=== PATIENT | female | born 1985 | race Caucasian/White ===

== ENCOUNTER 2017-06-01 06:17 | Emergency (ER) | payer MEDICAID ==
[~2017-06-01] VITALS: Ht 152.4 cm; Wt 58.4 kg
[2017-06-01 06:19] VITALS: BP 90/69
== END 2017-06-01 08:22 | disposition home or self-care (01) ==
LOC: ED 06:51
DX: M79.672 Pain in left foot (principal); M79.671 Pain in right foot; B35.3 Tinea pedis
CPT/HCPCS: 99283

== ENCOUNTER 2017-06-29 01:58 | Emergency (ER) | payer MEDICAID | END 2017-06-29 13:31 | disposition home or self-care (01) | LOC: ED 02:30 | DX: R21 Rash and other nonspecific skin eruption (principal); F41.9 Anxiety disorder, unspecified; F19.10 Other psychoactive substance abuse, uncomplicated | CPT/HCPCS: 99281 ==

== ENCOUNTER 2017-08-31 20:41 | Emergency (ER) | payer SELFPAY ==
[~2017-08-31] VITALS: Ht 152.4 cm; Wt 59.2 kg
[2017-08-31 20:42] VITALS: BP 110/73
== END 2017-08-31 22:14 | disposition home or self-care (01) ==
LOC: ED 22:07
DX: L03.116 Cellulitis of left lower limb (principal); L73.9 Follicular disorder, unspecified; F15.10 Other stimulant abuse, uncomplicated
CPT/HCPCS: 99283

== ENCOUNTER 2019-03-14 10:18 | Emergency (ER) | payer OTHER ==
[~2019-03-14] VITALS: Ht 152.4 cm; Wt 61.5 kg
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
[2019-03-14 11:54] LABS: BASOPHILS # (AUTO) 0.05 x10^3/uL (0-0.1); BASOPHILS % (AUTO) 0 % (0-1); EOSINOPHILS # (AUTO) 0.01 x10^3/uL (0-0.4); EOSINOPHILS % (AUTO) 0 % (1-7); LYMPHOCYTES # (AUTO) 1.43 x10^3/uL (1-3.4); LYMPHOCYTES % (AUTO) 11 % (22-44); MD NO; MEAN CORPUSCULAR HEMOGLOBIN 32.6 pg (27.0-34.8); MEAN CORPUSCULAR HGB CONC 34.6 g/dL (32.4-35.8); MEAN CORPUSCULAR VOLUME 94.2 fL (80-100); MEAN PLATELET VOLUME 8.6 fL (7.4-10.4); MONOCYTES # (AUTO) 0.27 x10^3/uL (0.2-0.8); MONOCYTES % (AUTO) 2 % (2-9); NEUTROPHILS # (AUTO) 11.39 x10^3/uL (1.8-6.8); NEUTROPHILS % (AUTO) 87 % (42-75); PLATELET COUNT 278 x10^3/uL (130-400); RED CELL DISTRIBUTION WIDTH 12.8 % (9.6-15.2)
--- NOTE | 2019-03-14 12:01 | NUR ---
US AT BEDSIDE. PT AWARE THAT WE NEED URINE SAMPLE. SKIN PWD. RESP EVEN AND UNLABORED. NAD NOTED AT THIS TIME. PT ON CONT BP AND O2 MONITORS. CALL LIGHT WITHIN REACH.
[2019-03-14 12:12] LABS: CHLORIDE 109 mmol/L (98-107)
[2019-03-14 12:25] LABS: ALANINE AMINOTRANSFERASE 14 U/L (12-78); ALBUMIN 4.1 g/dL (3.4-5.0); ALKALINE PHOSPHATASE 44 U/L (45-117); ANION GAP 8 mmol/L (5-15); BILIRUBIN,TOTAL 0.9 mg/dL (0.2-1.0); CALCIUM 9.4 mg/dL (8.5-10.1); CREATININE 0.64 mg/dL (0.55-1.02); TOTAL PROTEIN 7.4 g/dL (6.4-8.2)
--- NOTE | 2019-03-14 12:45 | NUR ---
PT AWARE WE STILL NEED URINE SAMPLE. PT REFUSES TO ATTEMPT AGAIN. RN OFFERED STRAIGHT CATH. PT REFUSED. NAD NOTED AT THIS TIME. SKIN PWD. RESP EVEN AND UNLABORED. PT ON CONT BP AND O2 MONITORS .CALL LIGHT WITHIN REACH. WILL CONT TO MONITOR PT.
--- NOTE | 2019-03-14 13:30 | NUR ---
PT UP TO RESTROOM. STEADY UPON AMBULATION. URINE SAMPLE PROVIDED AND SENT TO LAB. PT AO X 4. SKIN PWD. RESP EVEN AND UNLABORED. PT CONT TO HAVE FLIGHT OF IDEAS. RN PROVIDED RE-ORIENTATION AND ANSWERED ALL QUESTIONS. CALL LIGHT WITHIN REACH. WILL COTN TO MONITOR PT.
[2019-03-14 13:56] LABS: MICROSCOPIC INDICATED
[2019-03-14 14:09] LABS: AMPHETAMINE SCREEN, URINE Positive (Negative); BARBITURATE SCREEN, URINE Negative (Negative); BENZODIAZEPINE SCREEN, URINE Negative (Negative); CANNABINOID SCREEN, URINE Negative (Negative); COCAINE SCREEN, URINE Negative (Negative); CULTURE INDICATED? YES; METHADONE SCREEN, URINE Negative (Negative); OPIATE SCREEN, URINE Positive (Negative)
--- NOTE | 2019-03-14 14:30 | NUR ---
PT PROVIDED WITH CLEAN CLOTHES. PT AO X 4. SKIN PWD. RESP EVEN AND UNLABORED. NAD NOTED AT THIS TIME.
[2019-03-14 15:03] VITALS: BP 99/65
== END 2019-03-14 15:05 | disposition home or self-care (01) ==
LOC: ED 12:33
DX: N30.00 Acute cystitis without hematuria (principal); N18.9 Chronic kidney disease, unspecified
CPT/HCPCS: 36415; 76700; 80053; 80307; 81001; 84702; 85025; 87086; 99284

== ENCOUNTER 2020-05-05 15:09 | Emergency (ER) | payer MEDICAID ==
[~2020-05-05] VITALS: Ht 152.4 cm; Wt 56.3 kg
[2020-05-05 15:27] VITALS: BP 130/78
[2020-05-05] MEDS ORDERED: PHENAZOPYRIDINE 200 MG TABLET ONE (16:01)
--- NOTE | 2020-05-05 16:07 | NUR ---
PT MEDICATED PER ERP ORDER. URINE CUP PROVIDED, PT AWARE OF NEED FOR UA. CALL LIGHT WITHIN REACH.
--- NOTE | 2020-05-05 16:55 | NUR ---
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 Patient informed of consequenced of leaving prior to full workup: no answer or definitive treatment and may be financially responsible for full bill. Patient understood. Provider aware ua sent regardless-
[2020-05-05] MEDS ORDERED: PHENAZOPYRIDINE 200 MG TABLET PO ONE (17:00)
[2020-05-05 17:32] LABS: MICROSCOPIC INDICATED
== END 2020-05-05 16:58 | disposition left against medical advice (07) ==
LOC: ED 16:00
DX: R30.0 Dysuria (principal); R10.2 Pelvic and perineal pain; F17.210 Nicotine dependence, cigarettes, uncomplicated; R50.9 Fever, unspecified; N93.9 Abnormal uterine and vaginal bleeding, unspecified
CPT/HCPCS: 81001; 87086; 99283

== ENCOUNTER 2020-05-13 18:06 | Emergency (ER) | payer MEDICAID ==
--- NOTE | 2020-05-13 18:28 | NUR ---
KEELY RN: CALLED PT, PT STATES, " I GOT TO LEAVE NOW AND GO TO WORK" I WILL COME BACK
== END 2020-05-13 18:32 | disposition left against medical advice (07) ==
LOC: ED 18:08
DX: H92.02 Otalgia, left ear (principal); Z53.21 Procedure and treatment not carried out due to patient leaving prior to being seen by health care provider

== ENCOUNTER 2021-04-04 18:18 | Emergency (ER) | payer MEDICAID ==
[~2021-04-04] VITALS: Ht 152.4 cm; Wt 56.9 kg
[2021-04-04 18:23] VITALS: BP 98/72
--- NOTE | 2021-04-04 19:01 | NUR ---
CART PUSHER: NOT IN LOBBY WHEN CALLED FOR ROOM
--- NOTE | 2021-04-04 19:31 | NUR ---
AMUSEMENT OR RECREATION CARD CHECKER: NOT IN LOBBY WHEN CALLED FOR ROOM.
--- NOTE | 2021-04-04 19:38 | NUR ---
BOTTLE LINE WORKER: PT NOT IN LOBBY WHEN CALLED FOR ROOM. PT ASSUMED TO HAVE LEFT.
== END 2021-04-04 19:40 | disposition left against medical advice (07) ==
LOC: ED 18:35
DX: K08.89 Other specified disorders of teeth and supporting structures (principal); Z53.21 Procedure and treatment not carried out due to patient leaving prior to being seen by health care provider